=== PATIENT | female | born 1965 | race Caucasian/White ===

== ENCOUNTER 2021-04-02 12:31 | Observation (INO) | payer MEDICARE, MEDICAID ==
[~2021-04-02] VITALS: Ht 149.9 cm; Wt 65.8 kg
[2021-04-02] MEDS ORDERED: CLINDAMYCIN HC300 MG PO (14:40)
[2021-04-02] MEDS ORDERED: HYDROCODON-ACE1 EAC4 PO (14:41)
[2021-04-02 14:55] LABS: RED BLOOD COUNT 4.98 M/UL (4.00-5.10); WHITE BLOOD COUNT 13.2 K/UL (4.5-11.0)
--- NOTE | 2021-04-04 04:58 | NUR ---
04/03/21 @ 20:50 - Dr Tee at bedside. advanced pinrose drain, removed gauze, removed sutures. MD discussed at bedside discharge plans for the morning. Patient tolerated procedure well. No complications.
[2021-04-04 09:04] LABS: HEMOGLOBIN 14.9 gm/dl (12.3-15.3); RED BLOOD COUNT 4.89 M/UL (4.00-5.10)
[2021-04-04 09:07] LABS: WHITE BLOOD COUNT 9.4 K/UL (4.5-11.0)
== END 2021-04-04 17:01 | disposition home or self-care (01) ==
LOC: MED SURG 4 12:31 → ZOBSOF 12:31 → MED SURG 4 13:27
PROVIDERS: ADMIT Dentist Oral and Maxillofacial Surgery
DX: K12.2 Cellulitis and abscess of mouth (principal); K02.9 Dental caries, unspecified; K90.0 Celiac disease; Z88.8 Allergy status to other drugs, medicaments and biological substances; Z20.822 Contact with and (suspected) exposure to COVID-19
CPT/HCPCS: 36415; 84702; 85025; 85027; 87070; 87205; G0378; G0379; J0690; J1100; J2001; J2405; J2704; J3010; J7120; U0002